=== PATIENT | male | born 1980 | race Caucasian/White ===

== ENCOUNTER 2017-03-01 22:47 | Emergency (ER) | payer OTHER ==
[2017-03-01 22:54] VITALS: RESP 18
[2017-03-01] MEDS ORDERED: HYDROmorphone 1 MG/ML 1 ML SYRINGE IM STA (23:42)
--- NOTE | 2017-03-01 23:59 | ED ---
General Adult HPI - General Chief complaint: Headache Stated complaint: facial tingling/lip numbness Time Seen by Provider: 03/01/17 23:13 Source: patient, RN notes reviewed Mode of arrival: ambulatory Limitations: no limitations - History of Present Illness Initial comments: Chief complaint and history of present illness a 36-year-old female presents emergency room after having left another emergency room just 3 hours ago. Patient reports earlier today she started having a headache which she has a daily basis. She tried Motrin without relief. She went to another facility complained of the headache and some tingling around her lips. She also reports that she's had a history of occasional palpitations. The patient presents today with the same complaints at this time the patient appears not to be in any distress. - Related Data Home Medications Medication Instructions Recorded Confirmed Ibuprofen [Motrin] 600 mg PO Q4H PRN 03/01/17 03/01/17 Allergies Allergy/AdvReac Type Severity Reaction Status Date / Time divalproex sodium AdvReac HAIR LOSS Verified 03/01/17 23:05 [From Depakote] Review of Systems ROS Statement: Those systems with pertinent positive or pertinent negative responses have been documented in the HPI. Review of systems patient reports she has a headache. She reports she has a headache daily. She's had multiple surgeries for arachnoid cyst she's had a shunt in the past. She had surgery for Chiari malformation. The patient has a stimulator which she sometimes helps sometimes doesn't help. At the other facility she was given or offered Toradol but she states it never works and she requested Dilaudid which is the same thing she did here. Past surgeries Chiari, . Daily headaches. Patient denies stiff neck. No meningeal irritation. Family history sister has a neuroendocrine tumor. Patient has ALLERGIES to Depakote which causes her hair to fall. She does smoke she was strongly encouraged to stop she denies alcohol use. ROS Other: All systems not noted in ROS Statement are negative. Past Medical History Past Medical History: No Reported History History of Any Multi-Drug Resistant Organisms: None Reported Additional Past Surgical History / Comment(s): brain surgery for chiari malformation Past Psychological History: No Psychological Hx Reported Smoking Status: Current every day smoker Past Alcohol Use History: Occasional Past Drug Use History: None Reported General Exam - General Exam Comments Initial Comments: General: The patient is awake and alert, in no distress, and does not appear acutely ill. planes of a headache and some tingling around her lips. We did discuss anxiety. Vital signs temperature 98.2 pulse 103 respiratory rate 18 pulse ox 98 % room air blood pressure 139/84 Eye: Pupils are equal, round and reactive to light, extra-ocular movements are intact ; there is normal conjunctiva bilaterally. No signs of icterus. Ears, nose, mouth and throat: There are moist mucous membranes and no oral lesions. very poor dentition Neck: The neck is supple, there is no tenderness . Cardiovascular: There is a regular rate and rhythm. No murmur, rub or gallop is appreciated. Respiratory: Lungs are clear to auscultation, respirations are non-labored, breath sounds are equal. No wheezes, stridor, rales, or rhonchi. Gastrointestinal: abdomen no nausea no vomiting no difficulty urinating or bowel movements. Back: no back pain Musculoskeletal: Normal ROM, no tenderness, There is no pedal edema. There is no calf tenderness or swelling. Sensation intact. Pulses equal bilaterally 2+. Neurological: CN II-XII intact, There are no obvious motor or sensory deficits. Coordination appears grossly intact. Speech is normal.no focal or lateralizing findings.no facial asymmetry. The patient complains of headache which she states she has daily she does not appear to be uncomfortable. Requesting Dilaudid for the headache. Skin: Skin is warm and dry and no rashes or lesions are noted. Limitations: no limitations Course Vital Signs 03/01/17 22:52 Temperature 98.2 F Pulse Rate 103 H Respiratory 18 Rate Blood Pressure 139/84 O2 Sat by Pulse 98 Oximetry Medical Decision Making - Medical Decision Making Medical decision making; patient had a CAT scan there was reviewed and his entirety. The final impression is; no acute findings. Suboccipital craniectomy changes noted. As read by Dr. Couch the patient received 0.5 Dilaudid IM. She'll be discharged home to follow up with her neurologist and family physician Disposition Clinical Impression: Recurrent headache Disposition: HOME SELF-CARE Condition: Fair Instructions: General Headache (ED), Paresthesia (ED) Additional Instructions: Follow-up with your family physician and J neurologist. Referrals: None,Stated [Primary Care Provider] - 1-2 days Time of Disposition: 00:52
--- NOTE | 2017-03-02 00:36 | CT ---
EXAM: CT Head Without Intravenous Contrast CLINICAL HISTORY: Reason: daily headaches, nerve stim,chiari surg TECHNIQUE: Axial computed tomography images of the head/brain without intravenous contrast. DLP is 1054.20 mGy-cm. This CT exam was performed using one or more of the following dose reduction techniques: automated exposure control, adjustment of the mA and/or kV according to patient size, and/or use of iterative reconstruction technique. COMPARISON: No relevant prior studies available. FINDINGS: Brain: Unremarkable. No hemorrhage. No significant white matter disease. No edema. Ventricles: Unremarkable. No ventriculomegaly. Bones/joints: Suboccipital craniectomy changes demonstrated. Ventriculostomy tube in place in the left posterior fossa. No acute fracture. Soft tissues: Unremarkable. Sinuses: Unremarkable as visualized. No acute sinusitis. Mastoid air cells: Unremarkable as visualized. No mastoid effusion. IMPRESSION: No acute findings. Suboccipital craniectomy changes noted.
[2017-03-02 01:03] VITALS: BP 136/80; PULSE 95; TEMP 97.8
== END 2017-03-02 01:03 | disposition home or self-care (01) ==
LOC: EC 22:47
DX: R51 Headache (principal); R20.2 Paresthesia of skin; F17.200 Nicotine dependence, unspecified, uncomplicated; Z88.8 Allergy status to other drugs, medicaments and biological substances; Z98.890 Other specified postprocedural states
CPT/HCPCS: 70450; 99284; 96372; J1170